=== PATIENT | female | born 1980 | race Caucasian/White ===

== ENCOUNTER 2017-07-24 05:45 | Inpatient (IN) | payer OTHER ==
[~2017-07-24] VITALS: Ht 175.3 cm; Wt 116.1 kg
[~2017-07-24 05:45] MED LIST: PRO40 PO
[2017-07-24] MEDS ORDERED: ONDANSETRON HCL 4 MG/2 ML VIAL IVP PRN (08:30)
[2017-07-24] MEDS ORDERED: fentaNYL CITRATE/PF 100 MCG/2 ML AMP IVP PRN ×2 (08:30)
[2017-07-24] MEDS ORDERED: fentaNYL CITRATE/PF 100 MCG/2 ML AMP ONE (09:57)
[2017-07-24] MEDS ORDERED: fentaNYL CITRATE/PF 100 MCG/2 ML AMP IVP ONE ×2 (10:00→10:22)
[2017-07-24 11:20] VITALS: BP_SYST 124
[2017-07-24 12:00] VITALS: BP_SYST 123
[2017-07-24] MEDS: HYDROcodone/ACETAMIN 5-325 MG TAB (NORCO/ VICODIN) PO PRN ×4 (13:07→22:15)
[2017-07-24] MEDS: ONDANSETRON HCL 4 MG/2 ML VIAL IVP PRN ×2 (13:08→18:18)
[2017-07-24] MEDS ORDERED: NORMAL SALINE 5 ML DISP.SYRIN IVF SCH (14:00)
[2017-07-24] MEDS: NORMAL SALINE 5 ML DISP.SYRIN IVF SCH ×2 (14:00→22:15)
[2017-07-24 14:40] VITALS: BP_SYST 124
[2017-07-24 16:00] VITALS: BP_SYST 129
[2017-07-24] MEDS ORDERED: ONDANSETRON HCL 4 MG/2 ML VIAL IVP ONE (17:00)
[2017-07-24] MEDS ORDERED: HYDROcodone/ACETAMIN 5-325 MG TAB (NORCO/ VICODIN) PO PRN (17:00)
[2017-07-24] MEDS: DEXAMETHASONE SOD PHOSPHATE 4 MG/ML VIAL IVP SCH (17:15)
[2017-07-24 20:00] VITALS: BP_SYST 119
[2017-07-25] VITALS: BP_SYST 122
[2017-07-25] MEDS: DEXAMETHASONE SOD PHOSPHATE 4 MG/ML VIAL IVP SCH (01:16)
[2017-07-25] MEDS: ONDANSETRON HCL 4 MG/2 ML VIAL IVP PRN (01:25)
[2017-07-25] MEDS: NORMAL SALINE 5 ML DISP.SYRIN IVF SCH (06:11)
[2017-07-25] MEDS ORDERED: ACETAMINOPHEN 500 MG TABLET PO ONE (06:45)
[2017-07-25 08:10] VITALS: BP_SYST 130
[2017-07-25] MEDS ORDERED: AMOX-423 PO (10:24)
[2017-07-25] MEDS ORDERED: HYDR-1189 PO ×2 (10:25→10:26)
[2017-07-25 10:27] VITALS: BP_SYST 130
== END 2017-07-25 11:11 | disposition home or self-care (01) | DRG 627 ==
LOC: SMU 05:45
PROVIDERS: ADMIT Otolaryngology Plastic Surgery within the Head & Neck; ATTEND Otolaryngology Plastic Surgery within the Head & Neck
PROC: 0GTJ0ZZ Resection of Thyroid Gland Isthmus, Open Approach (ICD-10-PCS; principal; 2017-07-24 07:30)
DX: E04.9 Nontoxic goiter, unspecified (principal); E66.01 Morbid (severe) obesity due to excess calories; E07.89 Other specified disorders of thyroid; Z68.37 Body mass index [BMI] 37.0-37.9, adult
CPT/HCPCS: 87081; 88307; J1100; J2405; J3010; J7120